=== PATIENT | female | born 1950 | race Two or more races ===

== ENCOUNTER → 2017-09-05 | Outpatient (CLI) | payer MEDICARE, OTHER ==
[~2017-09-05] MED LIST: ASPI-1471 PO; CHOL10005 PO; FLU45SYR25 IM ONLY; LISI-362 PO; LISI20TA29 PO; [UNRECOGNIZED DRUG - REMARK]
[2017-09-05 12:09] LABS: PLATELET COUNT, AUTOMATED 243 K/uL (150-450)
[2017-09-05 12:20] LABS: LDL CHOLESTEROL 95 mg/dl
== END ==
LOC: LAB 11:38
PROVIDERS: ATTEND Internal Medicine
DX: I10 Essential (primary) hypertension (principal); R07.9 Chest pain, unspecified; R73.9 Hyperglycemia, unspecified; E66.9 Obesity, unspecified; R25.2 Cramp and spasm; M85.80 Other specified disorders of bone density and structure, unspecified site; R79.9 Abnormal finding of blood chemistry, unspecified
CPT/HCPCS: 36415; 81001; 82040; 82247; 82306; 82310; 82374; 82435; 82465; 82565; 82728; 82947; 83036; 83540; 83550; 83718; 83735; 84075; 84132; 84155; 84295; 84443; 84450; 84460; 84478; 84520; 85025

== ENCOUNTER → 2018-03-04 | Outpatient (CLI) | payer MEDICARE, OTHER ==
[~2018-03-04] MED LIST changes: +GLIP2.5T14 PO; +METF500T4 PO
[2018-03-04 16:39] LABS: PLATELET COUNT, AUTOMATED 274 K/uL (150-450)
[2018-03-04 16:47] LABS: LDL CHOLESTEROL 103 mg/dl
== END ==
LOC: LAB 16:07
PROVIDERS: ATTEND Internal Medicine
DX: E11.9 Type 2 diabetes mellitus without complications (principal); E78.5 Hyperlipidemia, unspecified; I10 Essential (primary) hypertension; E55.9 Vitamin D deficiency, unspecified
CPT/HCPCS: 36415; 81001; 82040; 82247; 82306; 82310; 82374; 82435; 82465; 82565; 82947; 83036; 83718; 84075; 84132; 84155; 84295; 84443; 84450; 84460; 84478; 84520; 85025

== ENCOUNTER 2018-04-02 12:31 | Outpatient (RCR) | payer MEDICARE, OTHER ==
[~2018-04-02] VITALS: Ht 162.6 cm; Wt 107.0 kg
[~2018-04-02 12:31] MED LIST changes: +ATOR20TA65 PO
--- NOTE | 2018-04-04 08:19 | Medical Nutrition Therapy ---
Nutrition Anthropometrics Height (Inches): 64 Weight (Pounds): 236 (STATED WT) BMI: 40.5 Hemanth Nutrition Score: Hemanth Nutrition Risk Score: Dietary Referral Nutrition Risk Factors: Nutrition Risk Comment: Physical Findings Physical Appearance: Morbidly Obese 40+ Skin Appearance Skin Appearance: Edema Edema Location Modifier: Edema Location: Type of Edema: Degree of Edema: Gastrointestinal Symptoms GI Symtoms: Tube Present: Bowel Sounds: Recent Bowel Pattern: Stool Characteristics: Nutrition/Food History Breakfast: skips usually Lunch: meat, vegor fruit, ice tea Dinner: meat, pasta, beans, veg Snacks: sweetw 2-3X/wk Nutritional Education Nutrition Education Topic: Diabetic Nutrition Learning Readiness: Interested Teaching Methods: Discussion, Handout, Demonstration Response to Teaching: Verbalize understanding, Reinforcement needed Teaching Recipient: Patient Nutrition Counseling: late entry of 04/02/18: Pt states has been diabetic for several years but has never recieved education. Pt states most difficult part of dx diabetes is diet and adding exercise . Pt is concerned about getting complications. Pt is of ethnicity but is unaware of T2DM in her family. Having this dx makes her angery. She is most interested in learning diet and how to lose weight. She would also like to get off of her medications. Set up support plan and behavoural goal of 10# wt loss in 6 months. Encouraged pt to stive for final wt loss goal of 10% for possible decreased in DM meds. Pt is on glyipizide which is known to promote wt gain. Recommend pt discuss this with PCP to see if another med would be benefical. Pt has tried metformin unsuccessfully. Nutrtion: Reiewed glycemic response to CHO and high/low glycemic index foods. Encouraged pt to go to hiher fiber CHO. Reviewed CHO counting vs plate method, vs Mediterranian diet vx Low CHO, High Protein. Provided meal plan of 30-45gm CHO/meal or 1c CHO/meal with unlimited non-starchy veg, 3-4 oz lean meat, 1-2 fats. Pt scheduled for classes the next 4 weeks. Nutrition Monitoring & Eval RD Patient Assessment Time: 90 minutes Nutritional Comment: On 04/02/18: Provided 90 minutes diabetes education focusing on self assessment with diabetes duress factors, nutrtion, setting behavioural goals and support plan. Copies To Copies to: ALEKSEY URIARTE MD ; ROSALVA SIMS Apr 04, 2018 08:19
--- NOTE | 2018-04-14 12:40 | Medical Nutrition Therapy ---
Nutritional Education Nutrition Education Topic: Diabetic Nutrition Learning Readiness: Interested Teaching Methods: Discussion, Handout, Demonstration Response to Teaching: Verbalize understanding Teaching Recipient: Patient Nutrition Counseling: Provided group diabetes education on nutrition. Reviewed: process of digestion; function of CHO, protein and fat; glycemic index; reading labels, portion sizes; heart healthy intake; eating out, alcohol. Nutrition Monitoring & Eval RD Patient Assessment Time: 90 minutes Nutritional Comment: On 04/02/18: Provided 60 minutes diabetes education in a group setingfocusing nutrition Copies To Copies to: ALEKSEY URIARTE MD ; ROSALVA SIMS Apr 14, 2018 12:40
--- NOTE | 2018-04-22 16:12 | Medical Nutrition Therapy ---
Nutritional Education Nutrition Education Topic: Diabetic Nutrition Learning Readiness: Interested Teaching Methods: Discussion, Handout, Demonstration Response to Teaching: Verbalize understanding Teaching Recipient: Patient Nutrition Counseling: Provided group diabetes education onlifestyle skill including: sick day management, oral health, complication, A1C, eye care and retinopathy, nephropathy, neuropathy, foot care, exercise, heart healthy, hypo and hyperglycemia, infection, personal health habits, stress, depression and sexual healthy. Nutrition Monitoring & Eval RD Patient Assessment Time: 60 minutes Nutritional Comment: Provided 60 minutes diabetes education in a group seting focusing on life skills. Copies To Copies to: ALEKSEY URIARTE MD ; ROSALVA SIMS Apr 22, 2018 16:12
--- NOTE | 2018-05-06 18:46 | Medical Nutrition Therapy ---
Nutritional Education Nutrition Education Topic: Diabetic Nutrition Learning Readiness: Interested Teaching Methods: Discussion Response to Teaching: Verbalize understanding Teaching Recipient: Patient Nutrition Counseling: Pt attended f/u session post classes. Behavioural goals were reviewed and pt cont to desire her SMART goal of 10# wt loss/6 months by limiting CHI to 1c/meal using plate methos, measuring food for 1 month for portion control and doing 15 minutes on exercise bike 1 X/wk. Pt achieved a 2# wt loss. Pt has been measuring foods but will d/c at this time and occsionally check portions. Pt has been limiting CHO but doens't always keep to 1c. Pt has not initialted exercise component. Reviewed holiday eating tips. Pt will tryto maintain current wt thru the holiday season and will resume wt loss goal after Jun 09. Will provide quarterly f/u call however pt was advised to call clinic with any questions or concerns she may have. Nutrition Monitoring & Eval RD Patient Assessment Time: 60 minutes Nutritional Comment: Provided 60 minutes diabetes education in a group seting focusing on life skills. ROSALVA SIMS May 06, 2018 18:46
== END 2018-05-07 ==
LOC: DIET 12:31
PROVIDERS: ATTEND Internal Medicine
DX: Z71.3 Dietary counseling and surveillance (principal); E11.9 Type 2 diabetes mellitus without complications; E66.9 Obesity, unspecified
CPT/HCPCS: G0108; G0109

== ENCOUNTER → 2018-07-01 | Outpatient (CLI) | payer MEDICARE, OTHER ==
[~2018-07-01] MED LIST changes: +EMPA10TA PO
[2018-07-01 14:46] LABS: LDL CHOLESTEROL 52 mg/dl
[2018-07-01 14:50] LABS: PLATELET COUNT, AUTOMATED 255 K/uL (150-450)
== END ==
LOC: LAB 13:58
PROVIDERS: ATTEND Internal Medicine
DX: E55.9 Vitamin D deficiency, unspecified (principal); E78.5 Hyperlipidemia, unspecified; E11.9 Type 2 diabetes mellitus without complications; I10 Essential (primary) hypertension
CPT/HCPCS: 36415; 81001; 82040; 82043; 82247; 82306; 82310; 82374; 82435; 82465; 82565; 82947; 83036; 83718; 84075; 84132; 84155; 84295; 84443; 84450; 84460; 84478; 84520; 85025

== ENCOUNTER → 2018-10-27 | Outpatient (CLI) | payer MEDICARE, OTHER ==
[2018-10-27 11:57] LABS: LDL CHOLESTEROL 53 mg/dl
== END ==
LOC: LAB 11:19
PROVIDERS: ATTEND Internal Medicine
DX: E78.5 Hyperlipidemia, unspecified (principal); E11.9 Type 2 diabetes mellitus without complications; I10 Essential (primary) hypertension
CPT/HCPCS: 36415; 81001; 82040; 82247; 82310; 82374; 82435; 82465; 82565; 82947; 83036; 83718; 84075; 84132; 84155; 84295; 84450; 84460; 84478; 84520